=== PATIENT | female | born 1990 | race African-American/Black ===

== ENCOUNTER 2016-10-20 04:38 | Inpatient (IN) ==
[2016-10-20] MEDS ORDERED: IOPAMIDOL 100 ML BOTTLE IJ ONE (04:39)
[2016-10-20] MEDS ORDERED: LORazepam 2 MG/ML VIAL IM ONE (04:51)
[2016-10-20] MEDS ORDERED: ONDANSETRON 4 MG/2 ML VIAL IV ONE (04:53)
[2016-10-20] MEDS ORDERED: 0.9 % SODIUM CHLORIDE 1,000 ML IV ONE ×2 (04:53→06:33)
[2016-10-20] MEDS ORDERED: PANTOPRAZOLE 40 MG VIAL IV ONE (04:53)
[2016-10-20] MEDS ORDERED: PHENobarb/HYOSCY/ATROPINE/SCOP 1 DOSE BOTTLE PO ONE (05:27)
[2016-10-20 05:38] LABS: Basophils # (Auto) 0 K/mcL (0.0-0.3); Basophils % (Auto) 0.3 % (0.0-2.0); Eosinophils # (Auto) 0.1 K/mcL (0.0-0.7); Eosinophils % (Auto) 1.6 % (0.0-7.0); Granulocytes % (Auto) 62.1 % (38.0-78.0); Lymphocytes # (Auto) 2.6 K/mcL (1.5-4.8); Lymphocytes % (Auto) 27.9 % (15.5-49.0); Mean Cell Volume 86.4 fL (80.0-100.0); Mean Corpuscular HGB Conc 32.8 g/dL (31.0-36.0); Mean Corpuscular Hemoglobin 28.4 pg (26.0-34.0); Monocytes # (Auto) 0.7 K/mcL (0.1-0.9); Monocytes % (Auto) 8.1 % (1.0-9.0); Platelet Count 370 K/mcL (140-440); RBC 4.68 M/mcL (4.00-5.20); Red Cell Distribution Width 13.3 % (11.5-14.5)
[2016-10-20 05:59] LABS: ALT/SGPT 7 U/l (0-40); Albumin 3.9 gm/dL (3.2-5.2); Albumin/Globulin Ratio 0.8 (1.0-2.3); Alkaline Phosphatase 71 U/L (39-117); Amylase 107 U/L (28-100); Blood Urea Nitrogen 7 mg/dl (6-20); Lipase 36 U/L (7-60)
[2016-10-20] MEDS: HYDROmorphone 2 MG/ML SYRINGE IV PRN ×3 (06:40→07:35)
[2016-10-20] MEDS ORDERED: LIDOCAINE JEL 2% 1 TUBE 30GM TOPICAL ONE (07:25)
--- NOTE | 2016-10-20 07:51 | Emergency Department Note ---
Abdominal Pain HPI - General Chief Complaint: Abdominal Pain Stated Complaint: abdominal pain Time Seen by Provider: 10/20/16 04:53 Source: patient Mode of arrival: ambulatory Limitations: no limitations - History of Present Illness HPI Narrative: 26-year-old female with pain in her upper abdomen epigastric area. This pain radiates to her back, severe causing her to be writhing in pain moaning and crying. No fever. This actually started Saturday night she came into the hospital yesterday with the cramping pain. The chest x-ray which was normal she was treated for bronchitis and costochondritis with azithromycin tramadol. Neither of these medicines haven't been helping her. Today she has not been able to keep anything down with nausea and vomiting. No diarrhea. She is between menses - Related Data Previous Rx's Medication Instructions Recorded Azithromycin [Zithromax] 250 mg PO DAILY #6 tablet 10/18/16 traMADol [Ultram] 50 mg PO Q4-6HP PRN #10 tablet 10/18/16 Allergies Allergy/AdvReac Type Severity Reaction Status Date / Time No Known Drug Allergies Allergy Verified 10/18/16 14:54 Review of Systems All systems ED: reviewed and negative except as stated. Abdominal Pain PMH - Past Medical History Medical history: Reports: no medical history Surgical history ED: Reports: no surgical history BECK TENDER history: Reports: other (Ovarian cysts) - Social History Smoking status: Never smoker Alcohol use: Reports: None Physical Exam Some acute distress secondary to belly pain-writhing. Normocephalic atraumatic. Conjunctiva bilaterally injected. Anicteric. Nasal congestion and discharge secondary to crying. Oropharynx is pink and moist. Wearing braces. Neck is supple without lymphadenopathy or thyromegaly. Heart is regular rate and rhythm no murmurs appreciated. Lungs are clear to auscultation bilaterally without wheezes rales rhonchi or respiratory distress. Abdomen distended and firm- unable to get a good exam. After giving her Ativan and Dilaudid. Repeat exam shows severe tenderness epigastric and right upper quadrant. Pelvic areas are also tender but not as much. Peritoneal signs and guarding. No CVA tenderness. +2 radial pulse. No pedal edema. Alert and oriented reasonable historian. No dysarthria or ataxia. Frustrated with her healthcare situation - General Limitations: no limitations Course Vital Signs Temperature 98.6 F 10/20/16 04:39 Pulse Rate 78 10/20/16 04:39 Respiratory Rate 19 10/20/16 04:39 Blood Pressure 107/78 10/20/16 04:39 Pulse Oximetry (%) 100 10/20/16 04:39 Temperature 98.6 F 10/20/16 04:39 Pulse Rate 78 10/20/16 04:39 Respiratory Rate 19 10/20/16 04:39 Blood Pressure 107/78 10/20/16 04:39 Pulse Oximetry (%) 100 10/20/16 04:39 Abdominal Pain - Lab Data Lab results reviewed: Yes I reviewed the patient's lab results. Result diagrams: 10/20/16 05:00 10/20/16 05:00 Lab Results 10/20/16 10/20/16 10/20/16 Range/Units 05:00 05:00 05:00 WBC 9.2 (4.5-11.0) K/mcL RBC 4.68 (4.00-5.20) M/mcL Hgb 13.3 (12.0-15.0) g/dL Hct 40.5 (36.0-48.0) % POC Hct (36.0-48.0) % MCV 86.4 (80.0-100.0) fL MCH 28.4 (26.0-34.0) pg MCHC 32.8 (31.0-36.0) g/dL RDW 13.3 (11.5-14.5) % Plt Count 370 (140-440) K/mcL MPV 9.2 (7.4-10.4) fL Gran % 62.1 (38.0-78.0) % Lymph % (Auto) 27.9 (15.5-49.0) % Greenwood % (Auto) 8.1 (1.0-9.0) % Eos % (Auto) 1.6 (0.0-7.0) % Baso % (Auto) 0.3 (0.0-2.0) % Gran # 5.7 (1.8-8.0) K/mcL Lymph # 2.6 (1.5-4.8) K/mcL Greenwood # 0.7 (0.1-0.9) K/mcL Eos # 0.1 (0.0-0.7) K/mcL Baso # 0 (0.0-0.3) K/mcL VBG Lactic Acid 1.7 (0.5-2.2) mmol/L POC Sodium (133-145) mmol/L Sodium 130 L (133-145) mmol/L POC Potassium (3.3-5.1) mmol/L Potassium 3.5 (3.3-5.1) mmol/L POC Chloride (96-108) mmol/L Chloride 92 L (96-108) mmol/L Carbon Dioxide 16 L (22-30) mmol/L POC Total CO2 (22-30) mmol/L Anion Gap 22.0 H (8-16) POC BUN (6-20) mg/dl BUN 7 (6-20) mg/dl Creatinine 0.7 (0.6-1.1) mg/dl POC Creatinine (0.6-1.1) mg/dl GFR Calculation 121 Glucose 89 (70-105) mg/dL POC Glucose (70-105) mg/dL Calcium 9.8 (8.6-10.4) mg/dl POC WB Ioniz Calcium (1.16-1.32) mmol/L Total Bilirubin 0.7 (0.0-1.0) mg/dL AST 12 (0-37) U/l ALT 7 (0-40) U/l Alkaline Phosphatase 71 (39-117) U/L Total Protein 9.1 H (5.9-8.4) gm/dL Albumin 3.9 (3.2-5.2) gm/dL Globulin 5.2 H (2.2-3.7) gm/dL Albumin/Globulin Ratio 0.8 L (1.0-2.3) Amylase 107 H (28-100) U/L Lipase 36 (7-60) U/L 10/20/16 Range/Units 05:00 WBC (4.5-11.0) K/mcL RBC (4.00-5.20) M/mcL Hgb (12.0-15.0) g/dL Hct (36.0-48.0) % POC Hct 42.0 (36.0-48.0) % MCV (80.0-100.0) fL MCH (26.0-34.0) pg MCHC (31.0-36.0) g/dL RDW (11.5-14.5) % Plt Count (140-440) K/mcL MPV (7.4-10.4) fL Gran % (38.0-78.0) % Lymph % (Auto) (15.5-49.0) % Greenwood % (Auto) (1.0-9.0) % Eos % (Auto) (0.0-7.0) % Baso % (Auto) (0.0-2.0) % Gran # (1.8-8.0) K/mcL Lymph # (1.5-4.8) K/mcL Greenwood # (0.1-0.9) K/mcL Eos # (0.0-0.7) K/mcL Baso # (0.0-0.3) K/mcL VBG Lactic Acid (0.5-2.2) mmol/L POC Sodium 134 (133-145) mmol/L Sodium (133-145) mmol/L POC Potassium 3.5 (3.3-5.1) mmol/L Potassium (3.3-5.1) mmol/L POC Chloride 102 (96-108) mmol/L Chloride (96-108) mmol/L Carbon Dioxide (22-30) mmol/L POC Total CO2 17 L (22-30) mmol/L Anion Gap (8-16) POC BUN 5 L (6-20) mg/dl BUN (6-20) mg/dl Creatinine (0.6-1.1) mg/dl POC Creatinine 0.5 L (0.6-1.1) mg/dl GFR Calculation Glucose (70-105) mg/dL POC Glucose 90 (70-105) mg/dL Calcium (8.6-10.4) mg/dl POC WB Ioniz Calcium 0.99 L (1.16-1.32) mmol/L Total Bilirubin (0.0-1.0) mg/dL AST (0-37) U/l ALT (0-40) U/l Alkaline Phosphatase (39-117) U/L Total Protein (5.9-8.4) gm/dL Albumin (3.2-5.2) gm/dL Globulin (2.2-3.7) gm/dL Albumin/Globulin Ratio (1.0-2.3) Amylase (28-100) U/L Lipase (7-60) U/L - Radiology Data Radiology results reviewed: Yes I reviewed the patient's radiology results. CT scan of the abdomen pelvis with contrast shows large amount of free fluid in the belly along with the partial small bowel obstruction. The free fluid could be blood based on attenuation but this is not certain. Bilateral ovarian cysts right larger than left- patient says these are chronic and there were first diagnosed when she was 19 Disposition Clinical Impression: Partial small bowel obstruction Ovarian cyst Qualifiers: Laterality: bilateral Qualified Code(s): N83.201 - Unspecified ovarian cyst, right side Summary: treated initially with fluids, Ativan and Dilaudid. Heat pack seems to help with pain as well. NG tube placed after CT scan showed partial small bowel obstruction with air-fluid levels. Discussed case with Dr. Mcmillan general surgery- he will admit pt for further care and evaluation Disposition: Xfer As Inpt ([facility]) Condition: Fair Referrals: No,PCP [Primary Care Provider] - Ziyad Mcmillan MD [Physician] -
[2016-10-20] MEDS ORDERED: ACETAMINOPHEN 325 MG TABLET PO PRN (08:11)
--- NOTE | 2016-10-20 08:26 | General Surg History&Physical ---
History of Present Illness Patient information: Note initiated : 10/20/16 at 8:23 am Service Date, if different from initiated Date: [] Patient: Maliha Hancock 26 y/o F admitted on for abdominal pain. Chief Complaint: [abdominal pain nausea vomiting] HPI: Ms. Hancock is a 26 year old female living here with her grandparents - was seen here in ER 10/18 because of mid-sternal CP and lots of coughing along with some vomiting. Since then she has had this persistant epigastric pain - never quite goes away - gets worse from time to time - and has been unable to keep any food or liquid down. Medications and Allergies Home Medications Medication Instructions Recorded Confirmed Type Azithromycin [Zithromax] 250 mg PO DAILY #6 tablet 10/18/16 Rx traMADol [Ultram] 50 mg PO Q4-6HP PRN #10 tablet 10/18/16 Rx Allergies Allergy/AdvReac Type Severity Reaction Status Date / Time No Known Drug Allergies Allergy Verified 10/18/16 14:54 Exam Temp Pulse Resp BP Pulse Ox 98.6 F 78 19 107/78 100 10/20/16 04:39 10/20/16 04:39 10/20/16 04:39 10/20/16 04:39 10/20/16 04:39
--- NOTE | 2016-10-20 08:31 | General Surg History&Physical ---
History of Present Illness Patient information: Note initiated : 10/20/16 at 8:27 am Service Date, if different from initiated Date: [] Patient: Maliha Hancock a 26 y/o F admitted on for abdominal pain. Chief Complaint: [abdominal pain nausea vomiting] HPI: Ms. Hancock is a 26 year old female seen in ER 10/18 with chest pain secondary to lots of coughing prior 3 days. CXR unremarkable - started on Zithromax and Tramadol. Noted that day to start vomiting and basically since then has been unable to "keep anything down." Still has pain in epigastric/ lower substernal region. Gets worse intermittently - then she vomits. Had normal BM yesterday afternoon - perhaps some on-going flatus. LMP about 2 weeks ago - normally regular. Has history of ovarian cysts - with bad pains with cycles until her 20 's. Was on BCP when she was younger. G0. Has not had any prior surgery. No prior occurrences like this. No blood in vomit or stools. No UTI symptoms. No fevers chills. Review of Systems - Constitutional headache(s), increased appetite, no as per HPI, no anorexia, no chills, no daytime sleepiness, no excessive sweating, no fatigue, no fever(s), no lethargy , no malaise, no night sweats, no snoring, no stops breathing during sleep, no weakness, no weight gain, no weight loss, no other - Cardiovascular as per HPI, acrocyanosis, chest pain, paroxysmal nocturnal dyspnea, no chest pain at rest, no chest pain with activity, no claudication, no diaphoresis, no dyspnea, no dyspnea on exertion, no edema, no irregular heart rhythm, no radiating jaw, neck or arm pain, no leg edema, no leg ulcers, no lightheadedness , no orthopnea, no palpatations, no pedal edema, no radiating pain, no rapid heart rate, no slow heart rate, no syncope, no other - Respiratory cough, hemoptysis, pain on inspirtation, pain with cough - Gastrointestinal as per HPI - Genitourinary Genitourinary: as per HPI Menstruation: as per HPI - Musculoskeletal no as per HPI, no muscle cramps, no muscle weakness, no myalgias, no neck pain, no numbness, no radiating pain into limb, no stiffness, no tingling, no other, no abnormal gait, no arthralgias, no atrophy, no back pain, no deformity, no joint swelling, no limited range of motion, no loss of height Past History Past medical history: none - no CV, Resp, GI or history Past surgical history: None Past family history: NC Past social history: No tobacco or other drugs Has 1 drink about every other week Medications and Allergies Home Medications Medication Instructions Recorded Confirmed Type Azithromycin [Zithromax] 250 mg PO DAILY #6 tablet 10/18/16 Rx traMADol [Ultram] 50 mg PO Q4-6HP PRN #10 tablet 10/18/16 Rx Allergies Allergy/AdvReac Type Severity Reaction Status Date / Time No Known Drug Allergies Allergy Verified 10/18/16 14:54 Exam Temp Pulse Resp BP Pulse Ox 98.6 F 78 19 107/78 100 10/20/16 04:39 10/20/16 04:39 10/20/16 04:39 10/20/16 04:39 10/20/16 04:39 - General physical appearance well developed, well nourished, no pain - Eyes PERRL, normal ocular movement - ENT normal pinna, normal nares, normal mucosa, no congestion - Head Head exam IM: Present: atraumatic, normal inspection, normocephalic - Neck no masses, no bruits, trachea midline, no lymphadectomy, no venous distension - Cardiovascular Cardiovascular exam IM: Present: normal rate and rhythm. Absent: bradycardia, clicks, diastolic murmur, gallop, irregular rhythm, JVD, RRR, rubs, +S1, +S2, + S3, +S4, systolic murmur, tachycardia - Respiratory normal expansion, normal respiratory effort, clear to percussion, clear to auscultation - Abdomen Abdomen: Present: soft, tender (diffusely - moreso in upper quadrants - no guarding - no percussion/referred/shake tenderness), bowel sounds (moderately hypoactive). Absent: rigid, rebound, distended, non tender, organomegaly, surgical scars, wound, masses, guarding - Integumentary Present: no rash, no growths, no abnormal pigmentation - Neurologic Present: normal coordination, normal sensation - Psychiatric Present: oriented to time, oriented to person, oriented to place, speech is normal, memory intact Results - Results Labs: CBC and CMP normal CT scan - abdomen: report reviewed, image reviewed Assessment and Plan (1) Ovarian cyst Status: Acute Qualifiers: Laterality: bilateral Qualified Code(s): N83.201 - Unspecified ovarian cyst , right side; N83.202 - Unspecified ovarian cyst, left side (2) Partial small bowel obstruction With no history of prior surgery - and findings on CT do not feel urgent surgery indicated. She may have bled from an ovarian cyst as a cause for the free fluid in her abdomen - and that might be the cause of this ileus/PSBO Will insert NGT due to distended stomach - and try to check CT with PO or NGT inserted gastrograffin in 3-4 hours and perhaps recheck plain films in AM All this discussed with her & she agrees with plan. 6o minutes spent in direct patient care Status: Acute Priority: High
--- NOTE | 2016-10-20 08:40 | Cat Scan Report ---
CLINICAL INFORMATION: Abdominal pain and vomiting COMPARISON: None. TECHNIQUE: Axial images were obtained through the abdomen and pelvis. Sagittally and coronally reformatted images. 80 mL nonionic contrast material injected intravenously. FINDINGS: This examination was initially interpreted by [facility]. Free intraperitoneal fluid within the pelvis and upper abdomen. Hounsfield units measure approximately 20-30. This is nonspecific. Mechanical small bowel obstruction with dilated small bowel. Maximum cross-sectional diameter measures approximately 3.5 cm. Transition point is not well visualized. There is collapsed small bowel in the left side of the abdomen indicating this is a jejunal obstruction. I believe the transition point is to the left of midline and best visualized on images 95 and 96/172. Patient has not had previous surgery. Internal hernia is possible including left paraduodenal hernia. There is no evidence for closed loop obstruction. There is no bowel wall thickening. No intramural gas. There are two cystic abnormalities in the right adnexal region. These measure 4.4 cm and 3.3 cm. This is consistent with right ovarian cysts. Probably incidental findings. Lung bases are negative. No pleural fluid. No pericardial fluid. Liver, spleen, pancreas, adrenal glands, kidneys are negative. No evidence for diverticulitis or appendicitis. No pneumoperitoneum. No biliary or portal venous gas. IMPRESSION: 1. Mechanical small bowel obstruction with probable transition point as above. 2. Free intraperitoneal fluid. This is nonspecific. 3. Cystic abnormalities in the right adnexa consistent with ovarian cysts Interpreted and Authenticated by: Micheal Bower 10/20/16
--- NOTE | 2016-10-20 08:43 | XRay Report ---
CLINICAL INFORMATION: Preoperative chest x-ray. Nasogastric tube placement. TECHNIQUE: Upright AP portable chest x-ray COMPARISON: 10/18/2016 FINDINGS: Esophagogastric tube with its tip in the stomach. Lungs are negative. No pulmonary infiltrate or mass. Heart size and vascularity are normal. Aleshia and mediastinum are negative. No pleural fluid. IMPRESSION: 1. Several gastric tube with its tip in the stomach. 2. Otherwise negative AP chest x-ray Interpreted and Authenticated by: Micheal Bower 10/20/16
[2016-10-20] MEDS: DEXTROSE 5%-NS 1,000 ML IV SCH ×2 (09:27→17:36)
[2016-10-20] MEDS: KETOROLAC 30 MG/ML VIAL IV PRN ×3 (09:40→21:56)
[2016-10-20 10:42] LABS: Blood Urea Nitrogen 5 mg/dl (6-20)
--- NOTE | 2016-10-20 10:56 | Ultrasound Report ---
CLINICAL INFORMATION: Small bowel obstruction. Abdominal pain. Free fluid within the peritoneal space. TECHNIQUE: Transabdominal and endovaginal ultrasound. Grayscale and color flow spectral imaging. COMPARISON: CT scan dated 10/20/2016 FINDINGS: Uterus is anterior vertigo. Uterus measures 7.2 x 3.4 x 5.7 cm. Myometrium is heterogeneous. Endometrium is abnormal. Endometrium measures 12 mm. There is a hypoechoic endometrial abnormality measuring approximately 8 x 4 x 4 mm. This is consistent with endometrial fluid. No detectable solid mass. Right ovary measures 8.1 x 4.0 x 6.2 cm. There are two complex, predominantly cystic abnormalities. These measure 4.9 x 4.1 x 4.9 cm and 3.5 x 3.4 x 3.5 cm. Appearance is most consistent with complex hemorrhagic cysts. There is no fat or calcification demonstrated on CT scan. Left ovary measures 4.3 x 2.3 x 3.7 cm. There are multiple locular cysts. No solid mass. There is moderate to large free pelvic fluid. No debris within this fluid. IMPRESSION: 1. Small endometrial fluid collection 2. Two sonographically complex right ovarian masses. Appearance most consistent with hemorrhagic cysts. Short-term follow-up pelvic ultrasound necessary. 3. Heterogeneous myometrium. No well-defined focal abnormality 4. Free pelvic fluid. 5. No solid adnexal mass. Interpreted and Authenticated by: Micheal Bower 10/20/16
[2016-10-20 11:05] LABS: Appearance,Urine HAZY; Bacteria,Urine FEW /hpf (0); Bilirubin,Urine NEG (NEG); Color,Urine YELLOW; Glucose,Urine (UA) NEGATIVE (NEG); Leukocyte Esterase,Urine 75 /uL (NEG); Mucus,Urine MOD /hpf (0); Nitrate,Urine NEG (NEG); Protein,Urine 30 mg/dL (NEG); Specific Gravity,Urine 1.048 (1.000-1.035); Urine Blood NEG mg/dL (<0.03); Urine RBC 5 /hpf (0-1); Urine Squamous Epithelial Cell 8 /hpf (0-4); Urine WBC 10 /hpf (0-4); Urobilinogen,Urine NEG (NEG)
[2016-10-20] MEDS: ONDANSETRON 4 MG/2 ML VIAL IV PRN ×3 (12:22→20:01)
[2016-10-20] MEDS: 0.9 % SODIUM CHLORIDE 10 ML SYRINGE IV SCH ×2 (14:32→21:42)
--- NOTE | 2016-10-20 16:17 | Cat Scan Report ---
CLINICAL INFORMATION: Small bowel obstruction COMPARISON: Previous examination dated 10/20/2016 TECHNIQUE: Axial images were obtained through the abdomen and pelvis. Sagittally and coronally reformatted images. Oral contrast material was given through the nasogastric tube. Multiplanar reformat and MIP reformatted images FINDINGS: Stomach and proximal small bowel are somewhat decompressed as compared with previous examination. This is probably secondary to the nasogastric tube. Nasogastric tube is present within the stomach. There is a transition point in the left side of the abdomen within jejunum. There is a focal filling defects suggesting a short segment small bowel intussusception. No discrete mass identified. There is no bowel wall thickening. No pneumatosis. No pneumoperitoneum. No evidence for closed loop obstruction. Free intraperitoneal fluid is slightly decreased as compared with previous examination. 5. There is a large amount of contrast material within the urinary bladder from prior intravenous contrast injection. Adnexal masses are not as well-visualized as on previous study. These are probably incidental right hemorrhagic ovarian cysts. No new abnormalities. No pneumoperitoneum. No biliary or portal venous gas or no pneumatosis. Short segment small bowel intussusception (less than 3.5 cm in length) frequently resolve spontaneously. Follow-up plain film examination may be of benefit. IMPRESSION: 1. Mechanical small bowel obstruction. Appearance is most consistent with short segment jejunal intussusception. 2. Decreased free intraperitoneal fluid 3. No evidence for bowel ischemia. Interpreted and Authenticated by: Micheal Bower 10/20/16
[2016-10-21] MEDS: ONDANSETRON 4 MG/2 ML VIAL IV PRN ×3 (00:06→21:20)
[2016-10-21] MEDS: DEXTROSE 5%-NS 1,000 ML IV SCH ×3 (00:35→17:22)
[2016-10-21] MEDS: KETOROLAC 30 MG/ML VIAL IV PRN ×2 (04:00→14:48)
[2016-10-21] MEDS: 0.9 % SODIUM CHLORIDE 10 ML SYRINGE IV SCH ×3 (04:58→21:53)
[2016-10-21 05:57] LABS: Mean Cell Volume 85.6 fL (80.0-100.0); Mean Corpuscular HGB Conc 33.2 g/dL (31.0-36.0); Mean Corpuscular Hemoglobin 28.5 pg (26.0-34.0); Platelet Count 275 K/mcL (140-440); RBC 3.77 M/mcL (4.00-5.20); Red Cell Distribution Width 13.4 % (11.5-14.5)
[2016-10-21] MEDS: PANTOPRAZOLE 40 MG VIAL IV SCH (06:40)
[2016-10-21 07:56] LABS: Eosinophils % (Manual) 4 % (0-7); Lymphocytes % 15 % (15-49); Monocytes % (Manual) 12 % (1-9); Platelet Estimate NORMAL (NORMAL); RBC Morphology NORMAL (NORMAL); Segmented Neutrophils % 69 % (38-78)
--- NOTE | 2016-10-21 08:05 | XRay Report ---
CLINICAL INFORMATION: Small bowel obstruction. Follow-up. TECHNIQUE: AP supine abdomen. Upright abdomen. COMPARISON: Two prior CT scans dated 10/20/2016 FINDINGS: Bowel gas pattern is improved. There is contrast material within the colon. There is gas-filled small bowel in the left abdomen and left upper quadrant. There is mild dilatation. Small bowel measures approximately 3.0 cm in cross-sectional diameter. There are are air-fluid levels. There is no pneumoperitoneum. No pneumatosis. No biliary or portal venous gas. Appearance is consistent with improvement and residual partial mechanical small bowel obstruction or resolving obstruction. IMPRESSION: Improved bowel gas pattern as above Interpreted and Authenticated by: Micheal Bower 10/21/16
--- NOTE | 2016-10-21 08:12 | General Surgery Progress Note ---
Subjective Patient reports: still having pain, voiding w/o difficulty, no flatus, no bowel movement, other (states pain is worse than yesterday - took analgesics q2h all night.) Narrative: Note initiated : 10/21/16 at 8:10 am Service Date, if different from initiated Date: [] Patient: Maliha Hancock 26 y/o F admitted on 10/20/16 for abdominal pain. Chief Complaint: [] States she is more distended & feels worse than yesterday. No BM or flatus. Objective Temp Pulse Resp BP Pulse Ox 98.6 F 67 16 96/57 97 10/21/16 07:15 10/21/16 03:05 10/21/16 07:15 10/21/16 07:15 10/21/16 07:15 - Additional Data Intake & Output - Last 24 hours: Intake & Output 10/19/16 10/20/16 10/21/16 10/22/16 05:59 05:59 05:59 05:59 Intake Total 1928 / 3428 Output Total 1050 / 1200 Balance 878 / 2228 Weight 141 lb - General physical appearance moderate distress - Eyes PERRL, normal ocular movement - ENT normal pinna, normal nares, normal mucosa, no hearing loss, no congestion - Neck no masses, no bruits, trachea midline, no lymphadectomy, no venous distension - Respiratory normal expansion, normal respiratory effort, clear to percussion, clear to auscultation - Cardiovascular Cardiovascular exam: Present: normal rate and rhythm - Abdomen tender (more tender in upper quadrants, voluntary guarding, no peritonitis), bowel sounds (absent), distended - Additional Exam Plain films show contrast into colon - however more SB air/fluid levels in LUQ than previously. CT report suggests possible intussusception. - Labs 10/21/16 Unknown 10/20/16 08:32 - Imaging Abdominal x-ray: image reviewed Medical - PN: A/P - Time Spent With Patient Total time spent is greater than 50% in coordination of care (as documented) at patient's floor/unit and/or counseling patient: 25 - 35 minutes (1) Ovarian cyst Status: Acute Current Visit: Yes (2) Partial small bowel obstruction Status: Acute Current Visit: Yes - Narrative A/P Narrative: No flatus or BM - worse clinical condition - and even though contrast through into colon still has significant LUQ A/F levels - I think she needs exploration especially in light of possible intussusception. Will proceed with laparoscopy , possible laparotomy, possible bowel resection and whatever else is indicated. Procedure, indications, alternatives (none good), possible risks & complications discussed with patient with mother present. She states she understands & agrees to proceed. Specific risks of bleeding, infection, problems with bowel anastomosis discussed.
[2016-10-21] MEDS ORDERED: cefOXitin 1 GM in DEXTROSE 5% IN WATER 50 ML IV ONE (09:30)
[2016-10-21] MEDS ORDERED: LIDOCAINE HCL/PF 100 MG/5 ML SYRINGE IV ONE (09:55)
[2016-10-21] MEDS ORDERED: PROPOFOL 200 MG/20 ML VIAL IV ONE (09:55)
[2016-10-21] MEDS ORDERED: DEXAMETHASONE 10 MG/ML VIAL IV ONE (09:55)
[2016-10-21] MEDS ORDERED: MIDAZOLAM 5 MG/5 ML VIAL IV ONE (09:55)
[2016-10-21] MEDS ORDERED: NEOSTIGMINE 1 MG/ML VIAL IV ONE (09:55)
[2016-10-21] MEDS ORDERED: ONDANSETRON 4 MG/2 ML VIAL IV ONE (09:55)
[2016-10-21] MEDS ORDERED: GLYCOPYRROLATE 0.2 MG/ML VIAL IV ONE (09:55)
[2016-10-21] MEDS ORDERED: fentaNYL 100 MCG/2 ML VIAL IV ONE (09:55)
[2016-10-21] MEDS ORDERED: ROCURONIUM 10 MG/ML ML IV ONE (09:55)
[2016-10-21] MEDS ORDERED: HYDROmorphone 2 MG/ML SYRINGE IV ONE (09:55)
[2016-10-21] MEDS ORDERED: ONDANSETRON 4 MG/2 ML VIAL IV PRN (10:41)
[2016-10-21] MEDS ORDERED: IPRATROPIUM/ALBUTEROL 3 ML AMPUL.NEB NEB PRN (10:41)
[2016-10-21] MEDS ORDERED: diphenhydrAMINE 50 MG/ML VIAL IV PRN (10:41)
[2016-10-21] MEDS ORDERED: HYDROmorphone 2 MG/ML SYRINGE IV PRN (10:41)
[2016-10-21] MEDS ORDERED: MEPERIDINE 25 MG/ML SYRINGE IV PRN (10:41)
[2016-10-21] MEDS ORDERED: NALOXONE HCL 0.4 MG/ML VIAL IV PRN (10:41)
[2016-10-21] MEDS ORDERED: LACTATED RINGERS 250 ML IV PRN (10:41)
[2016-10-21] MEDS ORDERED: BENZOCAINE/MENTHOL 1 LOZENGE PO PRN (10:41)
[2016-10-21] MEDS ORDERED: PROMETHAZINE 25 MG/ML VIAL IV PRN (10:41)
[2016-10-21] MEDS ORDERED: FLUMAZENIL 0.1 MG/ML ML IV PRN (10:41)
[2016-10-21] MEDS ORDERED: LACTATED RINGERS 1,000 ML IV SCH (10:45)
--- NOTE | 2016-10-21 11:36 | General Surgery Procedure Note ---
Date of procedure: Note initiated : 10/21/16 at 11:34 am Service Date, if different from initiated Date: [] Pre-op diagnosis: sbo Post-op diagnosis: other (SBO SECONDARY TO ADHESIONS) Procedure: LAPAROSCOPY AND ADHESIOLYSIS OPEN ADHESIOLYSIS IN PELVIS REPAIR SMALL BOWEL INJURY (NOT FULL THICKNESS) INCIDENTAL APPENDECTOMY Findings: 1 BANJO STRING ADHESION LUQ - ALSO ADHESIONS OF LIVER TO DIAPHRAGM. DENSE ADHESIONS DISTAL SB TO L OVARY DISTAL ILEUM AT THAT POINT HAD LONGITUDINAL SEROSAL TEAR REPAIRED WITH VICRYL WITHOUT ANY LUMEN COMPROMISE OR LEAKAGE. Grafts/Implants: NONE Anesthesia: ROSE Surgeon: Ziyad Mcmillan Environmental Educator: Melecio Ball Estimated blood loss: 25 Pathology: none sent Description of procedure: SEE DICTATED NOTE Condition: stable Disposition: PACU
[2016-10-21] MEDS ORDERED: HYDROcodone/APAP 5/325MG TABLET PO PRN (11:37)
[2016-10-21] MEDS ORDERED: oxyCODONE/APAP 5/325MG TABLET PO PRN (11:37)
[2016-10-21] MEDS: fentaNYL 100 MCG/2 ML VIAL IV PRN ×4 (11:50→12:10)
[2016-10-21] MEDS: DEXTROSE 5%-1/2NS W/20MEQ KCL 1,000 ML IV SCH ×2 (14:03→21:16)
[2016-10-21] MEDS ORDERED: BUPIVACAINE W/EPI 0.5% 50 ML VIAL IJ ONE (14:49)
[2016-10-21] MEDS ORDERED: HYDROcodone/APAP 5/325MG TABLET PO ONE (18:56)
[2016-10-21] MEDS: HYDROcodone/APAP 5/325MG TABLET PO PRN (22:40)
[2016-10-22] MEDS: KETOROLAC 30 MG/ML VIAL IV PRN (00:38)
[2016-10-22] MEDS: DEXTROSE 5%-NS 1,000 ML IV SCH ×3 (00:45→16:03)
[2016-10-22] MEDS: DEXTROSE 5%-1/2NS W/20MEQ KCL 1,000 ML IV SCH ×3 (03:09→10:30)
[2016-10-22] MEDS: HYDROcodone/APAP 5/325MG TABLET PO PRN ×2 (03:09→06:56)
[2016-10-22 05:59] LABS: Basophils # (Auto) 0 K/mcL (0.0-0.3); Basophils % (Auto) 0.3 % (0.0-2.0); Eosinophils # (Auto) 0.1 K/mcL (0.0-0.7); Eosinophils % (Auto) 1.3 % (0.0-7.0); Granulocytes % (Auto) 71.3 % (38.0-78.0); Lymphocytes # (Auto) 1.6 K/mcL (1.5-4.8); Lymphocytes % (Auto) 17.9 % (15.5-49.0); Mean Cell Volume 85.6 fL (80.0-100.0); Mean Corpuscular HGB Conc 32.5 g/dL (31.0-36.0); Mean Corpuscular Hemoglobin 27.8 pg (26.0-34.0); Monocytes # (Auto) 0.8 K/mcL (0.1-0.9); Monocytes % (Auto) 9.2 % (1.0-9.0); Platelet Count 279 K/mcL (140-440); RBC 3.43 M/mcL (4.00-5.20); Red Cell Distribution Width 13.2 % (11.5-14.5)
[2016-10-22] MEDS: 0.9 % SODIUM CHLORIDE 10 ML SYRINGE IV SCH ×3 (06:06→22:03)
[2016-10-22 06:17] LABS: Blood Urea Nitrogen < 2 mg/dl (6-20)
--- NOTE | 2016-10-22 07:48 | General Surgery Progress Note ---
Subjective Patient reports: still having pain, tolerating liquids well, voiding w/o difficulty, no flatus, no bowel movement, other (coughing which hurts - had cough preop) Narrative: Note initiated : 10/22/16 at 7:46 am Service Date, if different from initiated Date: [] Patient: Maliha Hancock 26 y/o F admitted on 10/20/16 for abdominal pain. Chief Complaint: [] Up OOB to BR although sometimes it hurts. More pain with coughing. Only using PO meds - taking liquids fairly well. Voiding a lot. Objective Temp Pulse Resp BP Pulse Ox 97.5 F L 66 14 99/64 100 10/22/16 04:00 10/22/16 04:00 10/22/16 04:00 10/22/16 04:00 10/22/16 04:00 - Additional Data Intake & Output - Last 24 hours: Intake & Output 10/20/16 10/21/16 10/22/16 10/23/16 05:59 05:59 05:59 05:59 Intake Total 1928 / 3428 4522 / 4522 Output Total 1050 / 1200 3050 / 3050 Balance 878 / 2228 1472 / 1472 Weight 141 lb 145 lb - General physical appearance well developed, well nourished, moderate distress - Eyes PERRL, normal ocular movement - Respiratory normal respiratory effort, clear to percussion, clear to auscultation, other ( less deep excursion) - Cardiovascular Cardiovascular exam: Present: normal rate and rhythm - Abdomen soft, tender, bowel sounds (scant BS), wound (dressings C&D) - Labs 10/22/16 04:25 10/22/16 04:25 Diabetes panel 10/22/16 Range/Units 04:25 Sodium 134 (133-145) mmol/L Potassium 3.7 (3.3-5.1) mmol/L Chloride 102 (96-108) mmol/L Carbon Dioxide 22 (22-30) mmol/L BUN < 2 L (6-20) mg/dl Creatinine 0.5 L (0.6-1.1) mg/dl Glucose 103 (70-105) mg/dL Calcium 8.1 L (8.6-10.4) mg/dl Calcium panel 10/22/16 Range/Units 04:25 Calcium 8.1 L (8.6-10.4) mg/dl Pituitary panel 10/22/16 Range/Units 04:25 Sodium 134 (133-145) mmol/L Potassium 3.7 (3.3-5.1) mmol/L Chloride 102 (96-108) mmol/L Carbon Dioxide 22 (22-30) mmol/L BUN < 2 L (6-20) mg/dl Creatinine 0.5 L (0.6-1.1) mg/dl Glucose 103 (70-105) mg/dL Calcium 8.1 L (8.6-10.4) mg/dl Adrenal panel 10/22/16 Range/Units 04:25 Sodium 134 (133-145) mmol/L Potassium 3.7 (3.3-5.1) mmol/L Chloride 102 (96-108) mmol/L Carbon Dioxide 22 (22-30) mmol/L BUN < 2 L (6-20) mg/dl Creatinine 0.5 L (0.6-1.1) mg/dl Glucose 103 (70-105) mg/dL Calcium 8.1 L (8.6-10.4) mg/dl K back to normal - H/H down dilutional Medical - PN: A/P - Time Spent With Patient Total time spent is greater than 50% in coordination of care (as documented) at patient's floor/unit and/or counseling patient: 15 - 24 minutes (1) Ovarian cyst Status: Acute Current Visit: Yes (2) Partial small bowel obstruction Status: Acute Assessment and plan: Need to wait until more evidence GI activity before advancing diet Dr. Dixon to assume care today. Current Visit: Yes
[2016-10-22] MEDS: ONDANSETRON 4 MG/2 ML VIAL IV PRN (10:18)
[2016-10-22] MEDS: PANTOPRAZOLE 40 MG VIAL IV SCH (10:22)
[2016-10-22] MEDS: KETOROLAC 15 MG/ML VIAL IV PRN ×2 (10:28→19:47)
[2016-10-22] MEDS: ACETAMINOPHEN 1,000 MG/100 ML BOTTLE IV PRN ×2 (10:30→21:14)
[2016-10-23] MEDS: DEXTROSE 5%-NS 1,000 ML IV SCH (00:20)
[2016-10-23] MEDS: KETOROLAC 15 MG/ML VIAL IV PRN ×3 (04:50→20:10)
[2016-10-23 05:44] LABS: Basophils # (Auto) 0 K/mcL (0.0-0.3); Basophils % (Auto) 0.5 % (0.0-2.0); Eosinophils # (Auto) 0.8 K/mcL (0.0-0.7); Eosinophils % (Auto) 11.3 % (0.0-7.0); Granulocytes % (Auto) 49.3 % (38.0-78.0); Lymphocytes % (Auto) 29.5 % (15.5-49.0); Mean Cell Volume 85.2 fL (80.0-100.0); Mean Corpuscular HGB Conc 33.3 g/dL (31.0-36.0); Mean Corpuscular Hemoglobin 28.4 pg (26.0-34.0); Monocytes # (Auto) 0.6 K/mcL (0.1-0.9); Monocytes % (Auto) 9.4 % (1.0-9.0); Platelet Count 266 K/mcL (140-440); RBC 3.48 M/mcL (4.00-5.20); Red Cell Distribution Width 13.4 % (11.5-14.5)
[2016-10-23] MEDS: DEXTROSE 5%-1/2NS W/20MEQ KCL 1,000 ML IV SCH ×3 (05:50→23:41)
[2016-10-23 06:04] LABS: Blood Urea Nitrogen 2 mg/dl (6-20)
[2016-10-23] MEDS: 0.9 % SODIUM CHLORIDE 10 ML SYRINGE IV SCH ×3 (06:15→21:31)
[2016-10-23] MEDS: PANTOPRAZOLE 40 MG VIAL IV SCH (06:55)
--- NOTE | 2016-10-23 07:59 | General Surgery Progress Note ---
Surgical - Auxillary Note - Subjective Patient Information: Note initiated : 10/23/16 at 7:55 am Service Date, if different from initiated Date: [] Patient: Maliha Hancock 26 y/o F admitted on 10/20/16 for Abd Pain/Ovarian Cyst, Partial Small Bowel Obstruc. Chief Complaint: Post Op Day #2 Patient feeling better this morning. Nausea improved. Pain control better with Toradol and Acetaminophen. No flatus or BM as of yet. Taking ice chips and sips without nausea. Vital Signs Temp Pulse Resp BP Pulse Ox 97.8 F 64 16 101/54 95 10/23/16 07:01 10/23/16 07:01 10/23/16 07:01 10/23/16 07:01 10/23/16 07:01 Period Temp Pulse Resp BP Sys/Angela Pulse Ox Last 24 Hr 97.5 F-99.0 F 59-76 16-18 96-110/54-67 95-100 Intake and Output 10/22/16 10/23/16 10/23/16 21:59 05:59 13:59 Intake Total 1358 / 1358 50 / 50 462 / 462 Output Total 100 / 100 300 / 300 Balance 1357 / 1357 -50 / -50 162 / 162 Weight 145 lb PE: General: No distress. CV: regular rhythm and rate Chest: Clear bilaterally, no rales or wheezes ABD: Mildly distended and tender along incision as expected. No rebound or guarding. Bowel sounds present. EXT: warm, no edema. Distal pulses easily palpable. CBC and Chem 7 10/23/16 04:50 10/23/16 04:50 A/P: s/p adhesiolysis for SBO. Await return of bowel function before advancing diet. Ambulate in halls. May shower.
--- NOTE | 2016-10-23 11:20 | Surgical Pathology Report ---
HISTOLOGY SPECIMEN MICROSCOPIC DIAGNOSIS APPENDIX, APPENDECTOMY: -- EARLY ACUTE APPENDICITIS WITH ACUTE AND CHRONIC PERITONITIS. (ACP:sln) PROCEDURAL IMPRESSION Small bowel obstruction due to adhesion. GROSS DESCRIPTION Received in formalin labeled appendix, is a 5.4 cm long by up to 0.6 cm in diameter purple-sy appendix with up to 1.0 cm of attached yellow-esqueda adipose tissue. The margin is pinched closed. The lumen contains thick green-brown fecal material. No gross perforations are identified. Overcoiler sections submitted - one cassette. (STM:sln) Electronically Signed by: Chuy Swann M.D.
[2016-10-23] MEDS: ACETAMINOPHEN 1,000 MG/100 ML BOTTLE IV PRN (13:32)
[2016-10-23] MEDS ORDERED: ACETAMINOPHEN 325 MG TABLET PO PRN (16:36)
--- NOTE | 2016-10-23 16:42 | Operative Note ---
DATE OF OPERATION: 10/21/2016 PREOPERATIVE DIAGNOSIS: Small bowel obstruction. POSTOPERATIVE DIAGNOSIS: Complete mechanical small bowel obstruction secondary to adhesions. OPERATION PERFORMED: 1. Laparoscopy and adhesiolysis. 2. Open extensive adhesiolysis in the pelvis. 3. Repair of serosal injury to small bowel. 4. Incidental appendectomy. SURGEON: Ziyad Mcmillan MD. ANESTHESIA: Melecio Ball CRNA. INDICATIONS: Please see the hospital note. 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 Gallbladder was soft and palpably normal with no stones. Spleen was normal. Retroperitoneum and pancreas and both kidneys were normal. Stomach was nicely decompressed with an oral gastric tube intraoperatively. There was one single banjo-string type adhesion in the left upper quadrant with a partial obstruction there, but this complete obstruction was in the distal ileum about a foot proximal to the ileocecal valve where there were two loops densely adherent to the left ovary which was inferior to the left tube and attached posteriorly to the uterus. The right tube and ovary were normal. Appendix was normal appearing but long and removed. The right, transverse, left and sigmoid colons were all palpably normal. There was about 500 mL of serous fluid within the abdomen. DESCRIPTION OF PROCEDURE: After informed consent and discussion of risks and options, the patient was taken to the operating room. A timeout was performed. Adequate general endotracheal anesthesia was obtained. Duke catheter was inserted as was an oral gastric tube. Both arms were tucked. Abdomen was prepped with Chlorohexidine. She was given one gram of cefoxitin preoperatively. Half percent Marcaine with epinephrine was used at all surgical sites. A vertical infraumbilical incision was made. Blunt dissection carried down to the fascia. Veress needle passed atraumatically into the abdominal cavity and checked with saline in a drop test and pneumoperitoneum created to 15 mm of pressure. A 5 mm port with a straight 5 mm scope was used to enter the abdominal cavity atraumatically. We switched to a 15 degree scope, placed right upper quadrant and right lower quadrant 5 mm trocars under direct vision. Patient was tilted appropriately. We ran the small bowel up to the ligament of Treitz, came down and found this single band adhesion, was able to lyse it. We began continuing to examine the small bowel and the other intraabdominal contents until we got down into the pelvis, and even with the patient in deep Trendelenburg, using some blunt dissection and some gentle dissection with the scissors, was not able to safely visualize and get this loop of bowl deep in the pelvis out. At that point we decided to convert to open and the three trocars were removed. Injected more half percent Marcaine, made the lower midline incision, went through the midline fascia and carried that atraumatically into the abdominal cavity controlling bleeding points in the skin, subcutaneous and muscle layers with electrocautery. Eviscerated the patient, was able to retract and find these two points of adhesion and finger fracture technique was able to free them up and deliver the small bowel. This longitudinal 3 cm serosal injury only was noted. I completely ran the small bowel twice again to make sure there was no other points of obstruction, completed my general exploration with findings as above. I then reapproximated the serosa using continuous 3-0 Vicryl, not compromising the lumen. There was a little extension on the transverse fascia which was likewise reapproximated. I checked passing fluid through this, as well as examining it digitally carefully and noted no compromise of the lumen once again. Checked the small bowel one more time to make sure there was no evidence of any other compromise or obstruction, examined the ovaries and visualized and palpated them. I then irrigated out the pelvis with some warm saline noting no blood. Bowel was returned to the abdominal cavity and irrigated again with copious amounts of saline with no bleeding. The posterior rectus sheath and peritoneum were picked up and closed with continuous 0 Vicryl. This wound irrigated thoroughly with saline noting good hemostasis. The anterior rectus sheath was closed with double-stranded 0 PDS with small close bites. Subcutaneous was closed with continuous 2-0 Vicryl and the skin with tyree. Duke catheter and oral gastric tubes were removed. The patient was awakened, extubated and taken to PACU having tolerated the procedure well. Sponge, needle and instrument counts were correct. Estimated blood loss 25 mL. [email or web address] Job ID: [id number] Doc ID: [id number] Ziyad Mcmillan MD
[2016-10-24] MEDS: DEXTROSE 5%-1/2NS W/20MEQ KCL 1,000 ML IV SCH (05:40)
[2016-10-24] MEDS: 0.9 % SODIUM CHLORIDE 10 ML SYRINGE IV SCH (06:25)
[2016-10-24] MEDS: PANTOPRAZOLE 40 MG VIAL IV SCH (06:39)
--- NOTE | 2016-10-24 09:24 | General Surgery Progress Note ---
Surgical - Auxillary Note - Subjective Patient Information: Note initiated : 10/24/16 at 9:08 am Service Date, if different from initiated Date: [] Patient: Maliha Hancock 26 y/o F admitted on 10/20/16 for Abd Pain/Ovarian Cyst, Partial Small Bowel Obstruc. Chief Complaint: Post op day #3 Patient feeling well. Passing flatus and had one BM yesterday. Has been ambulating in halls. Tolerating regular diet: no nausea or emesis Vital Signs Temp Pulse Resp BP Pulse Ox 98.8 F 72 16 94/57 95 10/24/16 06:33 10/24/16 06:33 10/24/16 07:10 10/24/16 06:33 10/24/16 07:10 Period Temp Pulse Resp BP Sys/Angela Pulse Ox Last 24 Hr 97.7 F-99.0 F 62-81 16-18 93-101/56-68 95-99 Intake and Output 10/23/16 10/24/16 10/24/16 21:59 05:59 13:59 Intake Total 240 / 240 1150 / 1150 Output Total 375 / 375 325 / 325 Balance -135 / -135 825 / 825 Weight 136 lb 8 oz PE: No distress Chest: clear bilaterally, no rales or wheezes CV: regular rate and rhythm ABD: Soft, wound clean and intact without erythema or drainage. EXt: warm, no edema. DP pulses easily palpable. A/P: Stable post op from adhesiolysis for SBO passing flatus and tolerating diet Home today. F/u in clinic early next week.
== END 2016-10-24 10:45 | disposition home or self-care (01) | DRG 329 ==
LOC: ED 04:38 → MEDSUR 08:48
PROVIDERS: ADMIT Surgery; ATTEND Surgery